=== PATIENT | female | born 1940 | race Caucasian/White ===

== ENCOUNTER 2016-11-29 11:46 | Emergency (ER) | payer OTHER ==
[~2016-11-29] VITALS: Ht 162.6 cm; Wt 70.3 kg
[~2016-11-29 11:46] MED LIST: IMODIUM A-D2 MG PO; PEPCID40 MG PO; ZOFRAN4 MG PO
[2016-11-29 12:02] VITALS: BP 204/96
== END 2016-11-29 16:22 ==
LOC: EME 11:46
DX: M71.21 Synovial cyst of popliteal space [Baker], right knee (principal); M79.604 Pain in right leg; M79.605 Pain in left leg; E11.9 Type 2 diabetes mellitus without complications; I10 Essential (primary) hypertension; Z87.891 Personal history of nicotine dependence
CPT/HCPCS: 93970; 99281; 99283

== ENCOUNTER 2017-01-21 16:35 | Emergency (ER) | payer OTHER ==
[~2017-01-21] VITALS: Ht 162.6 cm; Wt 70.8 kg
[2017-01-21 20:03] VITALS: BP 193/89
== END 2017-01-21 20:05 | disposition home or self-care (01) ==
LOC: EME → EDBD 16:35 → EME 20:05
DX: R07.89 Other chest pain (principal); S80.01XA Contusion of right knee, initial encounter; V53.5XXA Driver of pick-up truck or van injured in collision with car, pick-up truck or van in traffic accident, initial encounter; Z87.891 Personal history of nicotine dependence
CPT/HCPCS: 71020; 71120; 73564; 99281; 99284

== ENCOUNTER 2017-01-29 14:25 | Emergency (ER) | payer OTHER ==
[~2017-01-29] VITALS: Ht 162.6 cm; Wt 70.7 kg
[2017-01-29 15:31] LABS: MCH 30.6 PG (29.0-34.0); MCHC 31.7 G/DL (30.0-36.0); MCV 96.6 FL (83-99); MEAN PLAT.VOLUME 10.1 uM^3 (9.5-12.4); PLATELET COUNT 329 K/uL (156-360); RBC DIS.WIDTH-CV 13.5 % (11.8-14.6); RBC DIS.WIDTH-SD 48.3 % (39-53); RED BLOOD COUNT 4.35 M/uL (3.80-5.20); WHITE BLOOD COUNT 6.4 K/uL (4.1-10.2)
[2017-01-29 15:42] LABS: CHLORIDE 104 mEq/L (99-109); POTASSIUM 4.8 mEq/L (3.7-5.4); SODIUM 139 mEq/L (136-147)
[2017-01-29 15:44] LABS: GLUCOSE 131 mg/dL (70-99)
[2017-01-29 15:45] LABS: ANION GAP 11 MEQ/L (2-14)
[2017-01-29 15:46] LABS: TOTAL BILIRUBIN 0.2 mg/dL (0.0-1.0)
[2017-01-29 15:48] LABS: ALKALINE PHOSPHATASE 71 IU/L (3-129); GFR ESTIMATE (CALCULATED) > 59 mL/min/
[2017-01-29 15:49] LABS: UREA NITROGEN (BUN) 14 mg/dL (9-23)
[2017-01-29 18:20] LABS: ADD MIUA? YES; BILIRUBIN NEGATIVE; BLOOD NEGATIVE; COLOR YELLOW ((YELLOW)); GLUCOSE (STRIP) NEGATIVE; KETONES NEGATIVE; LEUKOCYTES LARGE; NITRITE NEGATIVE; PROTEIN (STRIP) NEGATIVE; UROBILINOGEN 0.2 MG/DL (0.2-1.0)
[2017-01-29 18:31] LABS: BACTERIA NONE SEEN /HPF; EPITHELIAL CELLS RARE /HPF; MUCUS NONE SEEN /LPF; RED BLOOD CELLS 0-5 /HPF (0-5)
[2017-01-29] MEDS ORDERED: ULTRAM50 MG PO (20:54)
[2017-01-29] MEDS ORDERED: CIPRO500 MG PO (21:03)
[2017-01-29 21:10] VITALS: BP 166/94
== END 2017-01-29 21:11 | disposition home or self-care (01) ==
LOC: EME 14:25
PROVIDERS: Nurse Practitioner Family
DX: M79.605 Pain in left leg (principal); N39.0 Urinary tract infection, site not specified; M25.552 Pain in left hip; V49.40XA Driver injured in collision with unspecified motor vehicles in traffic accident, initial encounter; E11.9 Type 2 diabetes mellitus without complications; I10 Essential (primary) hypertension; Z88.6 Allergy status to analgesic agent; Z87.891 Personal history of nicotine dependence
CPT/HCPCS: 72131; 73502; 73552; 74176; 80053; 81003; 85027; 93971; 99281; 99285

== ENCOUNTER 2017-05-02 21:28 | Observation (INO) | payer OTHER ==
[~2017-05-02] VITALS: Ht 162.6 cm; Wt 70.9 kg
[~2017-05-02 21:28] MED LIST changes: +CIPRO500 MG PO; +ULTRAM50 MG PO
[2017-05-02 22:07] LABS: BASOPHIL COUNT 0.1 K/uL (0-0.1); EOSINOPHIL (%) 3.6 % (0-5); EOSINOPHIL COUNT 0.2 K/uL (0-0.3); HEMATOCRIT 41.2 % (36.0-46.0); IMMATURE GRANULOCYTE (%) 0.3 % (0.0-0.7); INSTRUMENT ABS NEUTROPHIL CT 3.8 K/uL; LYMPHOCYTE COUNT 1.5 K/uL (1.0-2.8); MCH 30.8 PG (29.0-34.0); MCHC 31.8 G/DL (30.0-36.0); MCV 96.7 FL (83-99); MEAN PLAT.VOLUME 10.8 uM^3 (9.5-12.4); MONOCYTE (%) 10.3 % (3-12); MONOCYTE COUNT 0.6 K/uL (0-0.8); NEUTROPHIL (%) 61.2 % (45-76); NEUTROPHIL COUNT 3.8 K/uL (1.8-6.4); PLATELET COUNT 309 K/uL (156-360); RBC DIS.WIDTH-CV 13.2 % (11.8-14.6); RBC DIS.WIDTH-SD 47.6 % (39-53); RED BLOOD COUNT 4.26 M/uL (3.80-5.20); WHITE BLOOD COUNT 6.1 K/uL (4.1-10.2)
[2017-05-02 22:16] LABS: CHLORIDE 106 mEq/L (99-109); POTASSIUM 4.3 mEq/L (3.7-5.4); SODIUM 144 mEq/L (136-147)
[2017-05-02 22:19] LABS: GLUCOSE 123 mg/dL (70-99)
[2017-05-02 22:20] LABS: ANION GAP 12 MEQ/L (2-14)
[2017-05-02 22:21] LABS: TOTAL BILIRUBIN 0.1 mg/dL (0.0-1.0)
[2017-05-02 22:22] LABS: ALKALINE PHOSPHATASE 89 IU/L (3-129); GFR ESTIMATE (CALCULATED) 51 mL/min/
[2017-05-02 22:23] LABS: UREA NITROGEN (BUN) 21 mg/dL (9-23)
[2017-05-02 22:30] LABS: TROP-I INTERPRETATION NEGATIVE; TROPONIN-I < 0.01 ng/mL (0.0-0.30)
[2017-05-02 22:39] LABS: Estimated Average Glucose 137 mg/dL (70-123); HEMOGLOBIN A1c (GLYCOHEMOGLOB) 6.4 % HGB (Below 5.7)
[2017-05-02 22:55] LABS: HDL CHOLESTEROL 67 MG/DL (Desirable>=50); LDL CHOLESTEROL 143 mg/dL (Desirable<100); NON-HDL CHOLESTEROL 195 mg/dL (Desirable<160); TOTAL CHOLESTEROL 262 mg/dL (Desirable<200); TRIGLYCERIDES 260 MG/DL (Normal: <150)
[2017-05-03 02:07] VITALS: BP 194/89
[2017-05-03 02:13] LABS: ADD MIUA? YES; BILIRUBIN NEGATIVE; BLOOD NEGATIVE; COLOR YELLOW ((YELLOW)); GLUCOSE (STRIP) NEGATIVE; KETONES NEGATIVE; LEUKOCYTES LARGE; NITRITE NEGATIVE; PROTEIN (STRIP) NEGATIVE; SPECIFIC GRAVITY 1.015 (1.000-1.030); UROBILINOGEN 0.2 MG/DL (0.2-1.0)
[2017-05-03 02:17] LABS: BACTERIA RARE /HPF; EPITHELIAL CELLS RARE /HPF; MUCUS TRACE /LPF; RED BLOOD CELLS 0-5 /HPF (0-5); WHITE BLOOD CELLS 15-20 /HPF (0-5)
[2017-05-03] MEDS ORDERED: LISINOPRIL20 MG PO (02:42)
[2017-05-03] MEDS ORDERED: GLUCOPHAGE1000 MG PO (02:44)
[2017-05-03] MEDS ORDERED: PAXIL20 MG PO (02:45)
[2017-05-03] MEDS ORDERED: GLIMEPIRIDE1 MG PO (02:45)
[2017-05-03 03:21] VITALS: BP 189/84
[2017-05-03 08:23] VITALS: BP 150/71
[2017-05-03 08:45] LABS: POINT-OF-CARE METER ID UU13113717
[2017-05-03 13:10] LABS: POINT-OF-CARE METER ID UU14174225
[2017-05-03 16:38] VITALS: BP 162/84
[2017-05-03 17:24] LABS: POINT-OF-CARE METER ID UU14174225
[2017-05-03 20:33] VITALS: BP 156/77
[2017-05-03 21:33] LABS: POINT-OF-CARE METER ID UU14174225
[2017-05-04] VITALS: BP 151/71
[2017-05-04 04:02] VITALS: BP 141/69
[2017-05-04 06:00] LABS: HEMATOCRIT 41.1 % (36.0-46.0); MCH 31.7 PG (29.0-34.0); MCHC 32.1 G/DL (30.0-36.0); MCV 98.6 FL (83-99); MEAN PLAT.VOLUME 10.9 uM^3 (9.5-12.4); PLATELET COUNT 289 K/uL (156-360); RBC DIS.WIDTH-CV 13.2 % (11.8-14.6); RED BLOOD COUNT 4.17 M/uL (3.80-5.20); WHITE BLOOD COUNT 5.6 K/uL (4.1-10.2)
[2017-05-04 06:29] LABS: ANION GAP 8 MEQ/L (2-14); CHLORIDE 106 MEQ/L (99-109); GFR ESTIMATE (CALCULATED) > 59 mL/min/; POTASSIUM 4.6 MEQ/L (3.7-5.4); SAMPLE HEMOLYSIS CHECK 0; SAMPLE ICTERIC CHECK 0; SAMPLE LIPEMIA CHECK 0; SODIUM 143 MEQ/L (136-147); UREA NITROGEN (BUN) 16 mg/dL (9-23)
[2017-05-04 06:39] LABS: GLUCOSE 88 mg/dL (70-99)
[2017-05-04 08:10] VITALS: BP 139/70
[2017-05-04 08:45] LABS: POINT-OF-CARE METER ID UU14174225
[2017-05-04] MEDS ORDERED: ASPIR-LOW81 MG PO (11:38)
[2017-05-04 12:43] VITALS: BP 142/76
[2017-05-04 15:00] VITALS: BP 128/99
== END 2017-05-04 15:06 ==
LOC: EME 21:28 → EDOF 05-03 00:17 → ENRESERV 05-03 00:20 → 5SOUTH 05-03 01:48
PROVIDERS: Emergency Medicine; Hospitalist
DX: G45.9 Transient cerebral ischemic attack, unspecified (principal); E11.9 Type 2 diabetes mellitus without complications; E78.5 Hyperlipidemia, unspecified; R06.83 Snoring; I10 Essential (primary) hypertension; Z82.3 Family history of stroke; R26.9 Unspecified abnormalities of gait and mobility; Z79.82 Long term (current) use of aspirin; Z79.4 Long term (current) use of insulin; Z79.84 Long term (current) use of oral hypoglycemic drugs; Z88.8 Allergy status to other drugs, medicaments and biological substances; Z88.5 Allergy status to narcotic agent
CPT/HCPCS: 70450; 70551; 71010; 80048; 80053; 80061; 81003; 82607; 82948; 83036; 84443; 84484; 85025; 85027; 87086; 93005; 93306; 93880; 99281; 99285; G0378; J1644; J1815; J2060; J2405; J7040

== ENCOUNTER 2017-09-11 14:17 | Emergency (ER) | payer OTHER ==
[~2017-09-11] VITALS: Ht 162.6 cm; Wt 68.0 kg
[~2017-09-11 14:17] MED LIST changes: +ASPIR-LOW81 MG PO; +GLIMEPIRIDE1 MG PO; +GLUCOPHAGE1000 MG PO; +LISINOPRIL20 MG PO; +PAXIL20 MG PO
[2017-09-11 15:54] LABS: MCH 30.7 PG (29.0-34.0); MCHC 31.5 G/DL (30.0-36.0); MCV 97.6 FL (83-99); MEAN PLAT.VOLUME 10.6 uM^3 (9.5-12.4); PLATELET COUNT 377 K/uL (156-360); RBC DIS.WIDTH-CV 13.5 % (11.8-14.6); RBC DIS.WIDTH-SD 48.3 % (39-53); WHITE BLOOD COUNT 6.5 K/uL (4.1-10.2)
[2017-09-11 16:06] LABS: CHLORIDE 105 mEq/L (99-109); POTASSIUM 4.7 mEq/L (3.7-5.4); SODIUM 139 mEq/L (136-147)
[2017-09-11 16:08] LABS: GLUCOSE 125 mg/dL (70-99)
[2017-09-11 16:09] LABS: ANION GAP 11 MEQ/L (2-14)
[2017-09-11 16:12] LABS: GFR ESTIMATE (CALCULATED) 57 mL/min/
[2017-09-11 16:13] LABS: UREA NITROGEN (BUN) 20 mg/dL (9-23)
[2017-09-11 16:25] VITALS: BP 132/77
== END 2017-09-11 17:05 ==
LOC: EME 14:17
PROVIDERS: Nurse Practitioner Family
DX: L03.116 Cellulitis of left lower limb (principal); Z86.73 Personal history of transient ischemic attack (TIA), and cerebral infarction without residual deficits; Z79.02 Long term (current) use of antithrombotics/antiplatelets; I10 Essential (primary) hypertension; E11.9 Type 2 diabetes mellitus without complications; Z79.84 Long term (current) use of oral hypoglycemic drugs; Z87.891 Personal history of nicotine dependence
CPT/HCPCS: 73630; 80048; 85027; 99281; 99284

== ENCOUNTER 2017-10-08 10:43 | Emergency (ER) | payer OTHER ==
[~2017-10-08] VITALS: Ht 162.6 cm; Wt 68.1 kg
[2017-10-08 11:29] LABS: HEMATOCRIT 40.2 % (36.0-46.0); HEMOGLOBIN 12.7 G/DL (11.9-15.5); MCH 30.6 PG (29.0-34.0); MCHC 31.6 G/DL (30.0-36.0); MCV 96.9 FL (83-99); PLATELET COUNT 357 K/uL (156-360); RBC DIS.WIDTH-CV 13.7 % (11.8-14.6); RBC DIS.WIDTH-SD 48.2 % (39-53); RED BLOOD COUNT 4.15 M/uL (3.80-5.20); WHITE BLOOD COUNT 16.8 K/uL (4.1-10.2)
[2017-10-08 11:37] LABS: CHLORIDE 103 mEq/L (99-109); POTASSIUM 4.3 mEq/L (3.7-5.4); SODIUM 141 mEq/L (136-147)
[2017-10-08 11:38] LABS: GLUCOSE 175 mg/dL (70-99)
[2017-10-08 11:42] LABS: CREATININE 0.9 mg/dL (0.6-1.3); GFR ESTIMATE (CALCULATED) > 59 mL/min/
[2017-10-08 11:43] LABS: UREA NITROGEN (BUN) 17 mg/dL (9-23)
[2017-10-08 13:57] LABS: LIPASE 14 U/L (1.0-51.0)
[2017-10-08 14:17] LABS: APPEARANCE SL.HAZY ((CLEAR)); BILIRUBIN NEGATIVE; BLOOD NEGATIVE; COLOR YELLOW ((YELLOW)); GLUCOSE (STRIP) 50; KETONES NEGATIVE; LEUKOCYTES NEGATIVE; NITRITE NEGATIVE; PROTEIN (STRIP) 30; SPECIFIC GRAVITY 1.018 (1.000-1.030); UROBILINOGEN 0.2 MG/DL (0.2-1.0)
[2017-10-08 14:22] LABS: BACTERIA NONE SEEN /HPF; EPITHELIAL CELLS RARE /HPF; MUCUS NONE SEEN /LPF; RED BLOOD CELLS 0-5 /HPF (0-5); UCUL ADDED? NO; WHITE BLOOD CELLS 0-5 /HPF (0-5)
[2017-10-08] MEDS ORDERED: ZOFRAN4 MG PO (15:46)
[2017-10-08] MEDS ORDERED: IMODIUM A-D2 M2 PO (15:48)
[2017-10-08 16:56] VITALS: BP 138/71
== END 2017-10-08 17:05 ==
LOC: EME 10:43
DX: A09 Infectious gastroenteritis and colitis, unspecified (principal); Z90.49 Acquired absence of other specified parts of digestive tract; I10 Essential (primary) hypertension; E11.9 Type 2 diabetes mellitus without complications; Z79.84 Long term (current) use of oral hypoglycemic drugs; Z87.891 Personal history of nicotine dependence
CPT/HCPCS: 74177; 80048; 81003; 83690; 85027; 87502; 99281; 99285; J2405; J7030